=== PATIENT | female | born 1990 | race Caucasian/White ===

== ENCOUNTER 2017-06-04 01:08 | Emergency (ER) | payer OTHER, SELFPAY ==
[2017-06-04 03:49] LABS: Bilirubin Negative (Negative); Blood, Urine Large (Negative); Glucose, Urine (Dipstick) Negative (Negative); Ketone, Urine Negative (Negative); Nitrite Negative (Negative); Protein, Urine (Dipstick) Negative (Neg-Trace)
[2017-06-04 03:54] LABS: Bacteria/HPF None Seen HPF (None Seen); Hyaline Casts/LPF 0-3 HYALINE CAST LPF (0-3 Hyaline); Squamous Epithelial 0-3 HPF (0-3); WBC/HPF None Seen HPF (0-3)
[2017-06-04] MEDS ORDERED: Acetaminophen 500 MG TAB ONE (05:27)
--- NOTE | 2017-06-04 10:02 | ULT ---
PRELIMINARY REPORT/[facility]/EMERGENCY AFTER HOURS PROCEDURE: EXAM: US First Trimester, Transabdominal US , Transvaginal US Duplex Arterial/Venous of the Pelvis, Complete CLINICAL HISTORY: 26 years old, female; Signs and symptoms; Lmp or gestational age (in weeks): 11wks; Other: Vag bleed ing; TECHNIQUE: Real-time transabdominal and transvaginal obstetrical ultrasound of the maternal pelvis and a first trimester with image documentation. Transvaginal imaging was used for better evaluation of the fetus and adnexa. Real-time duplex ultrasound scan of the arterial and venous flow of the pelvis with color Doppler fl ow and spectral waveform analysis was also performed for evaluation of pelvic and ovarian blood flow .. COMPARISON: No relevant prior studies available. FINDINGS: Gestation: Single, living intrauterine gestation. heart rate 171 beats per minute. CRL 4.63 cm , 11w3d. Yolk sac visualized. Placenta/amniotic fluid: Cannot be adequately evaluated due to the early gestational age. Uterus/cervix: Large heterogeneous complex mass/probable perigestational hemorrhage anterior and inf erior to the gestational sac. Ovaries: No acute findings. No mass. Normal arterial and venous blood flow. No torsion. Free fluid: Mild free fluid. IMPRESSION: Single viable intrauterine . Large probable perigestational hemorrhage. THIS REPORT CONTAINS FINDINGS THAT MAY BE CRITICAL TO PATIENT CARE. The findings were verbally commu nicated via telephone conference with Dr. Plasencia at 4:23 AM CDT on 06/04/2017. The findings were ack nowledged and understood. Thank you for allowing us to participate in the care of your patient. Dictated and Authenticated by: Darwin Hewitt MD 06/04/2017 4:31 AM Central Time ([place] \T\ [place]) FINAL REPORT PELVIC ULTRASOUND WITH DOPPLER: (TRANSABDOMINAL, TRANSVAGINAL, BILLINGS SCALE, COLOR FLOW, AND SPECTRAL DOPPLER) DATE: 06/04/17 FINDINGS/IMPRESSION: I agree with the preliminary report given by Dr. Darwin Hewitt of [facility]. POS: [facility]
== END 2017-06-04 06:23 | disposition home or self-care (01) ==
LOC: ERS 01:08
DX: O20.0 Threatened abortion (principal); O99.341 Other mental disorders complicating pregnancy, first trimester; F32.9 Major depressive disorder, single episode, unspecified; F41.9 Anxiety disorder, unspecified; Z79.82 Long term (current) use of aspirin; Z3A.11 11 weeks gestation of pregnancy
CPT/HCPCS: 36415; 76856; 81003; 81015; 81025; 84702; 86900; 86901; 87480; 87510; 87660; 90384; 90471; 96372